=== PATIENT | female | born 1935 | race Caucasian/White ===

== ENCOUNTER 2017-02-25 18:36 | Inpatient (IN) ==
[2017-02-25] MEDS ORDERED: Ipratropium/Albuterol Neb 3 ML IH ONE (18:57)
[2017-02-25] MEDS ORDERED: methylPREDNISolone 125 MG/2 ML VIAL IVP ONE (18:57)
--- NOTE | 2017-02-25 19:14 | Emergency Department Note ---
Disposition Clinical Impression: Acute exacerbation of chronic obstructive airways disease Altered mental status Qualifiers: Altered mental status type: unspecified Qualified Code(s): R41.82 - Altered mental status, unspecified Urinary tract infection Qualifiers: Urinary tract infection type: site unspecified Hematuria presence: without hematuria Qualified Code(s): N39.0 - Urinary tract infection, site not specified Disposition: Admitted As Inpatient Condition: Good Time of Disposition: 23:27 General Adult HPI - General Chief complaint: ED Shortness of Breath/Dyspnea Stated complaint: AMS/SOB Time Seen by Provider: 02/25/17 18:40 Source: patient Limitations: no limitations, age Nursing Notes Reviewed: Yes Vital Signs Reviewed: Yes - History of Present Illness HPI Narrative: Patient [facility] from [facility] with the chief complaint of altered mental status and shortness of breath. Reportedly patient had a lumbar compression fracture diagnosed on January 12 of this year. Nursing reports that she has been slowly declining since then. She was diagnosed with urinary tract infection on February 21 of this year and was placed on Augmentin 875 mg twice a day for 7 days. Reports that over the last week she has been complaining of increasing shortness of breath despite her normal continuous oxygen requirement for COPD. Family reports that she is normally alert and intermittently confused, but that she has been increasing with her confusion. On my evaluation of the patient. She is resting comfortably in bed. She has no complaints at this time. She denies any headache, changes in vision, chest pain, shortness of breath worse than her baseline, abdominal pain, nausea, vomiting, pain or swelling in her legs. She does complain of some chronic low back pain that is no worse than usual. She states she is unsure why she is here for that. Her family thought that she should come be evaluated. Pain Scale: 6 - Related Data Home Medications Medication Instructions Recorded Confirmed ALPRAZolam [Xanax 1 MG Tablet] 1 mg PO 0700,199902/25/17 02/25/17 Albuterol Neb [Proventil Neb] 2.5 mg IH 0000,0600,1200,1800 02/25/17 02/25/17 Amoxicillin/Clavulanate [Augmentin] 875 mg PO Q12H 02/25/17 02/25/17 Arformoterol Tartrate [Brovana] 15 mcg IH 0700,199902/25/17 02/25/17 Ascorbate Calcium [Vitamin C] 500 mg PO DAILY 02/25/17 02/25/17 Atorvastatin [Lipitor] 40 mg PO HS 02/25/17 02/25/17 B2/Vits A,C,E/Lut/Zeaxanth/Min 1 each PO BID 02/25/17 02/25/17 [Icaps Tablet] Budesonide Neb [Pulmicort Neb] 0.25 mg IH 0700,199902/25/17 02/25/17 Buspirone HCl [Buspar] 5 mg PO QAM 02/25/17 02/25/17 Calcium Carbonate/Vitamin D3 1 each PO DAILY 02/25/17 02/25/17 [Calcium 600-Vit D3 200 Tablet] Cholecalciferol (D-3) [Vitamin D] 1,000 unit PO DAILY 02/25/17 02/25/17 Clopidogrel [Plavix] 75 mg PO HS 02/25/17 02/25/17 Docusate [Colace] 100 mg PO DAILY PRN 02/25/17 02/25/17 HYDROcodone/Acet 5/325 mg [[place] 1 tab PO 0500,1100,1700,2300 02/25/17 02/25/17 5-325 mg] Ibuprofen [Motrin] 200 mg PO Q6H PRN 02/25/17 02/25/17 Levothyroxine [Synthroid] 50 mcg PO 0630 02/25/17 02/25/17 Losartan Potassium [Cozaar] 50 mg PO QPM 02/25/17 02/25/17 Magnesium Hydroxide [Milk of 2,400 mg PO DAILY PRN 02/25/17 02/25/17 Magnesia] Meclizine HCl [Verticalm] 25 mg PO Q8H PRN 02/25/17 02/25/17 Megestrol Acetate 800 mg PO DAILY 02/25/17 02/25/17 Multivit-Min/FA/Lycopen/Lutein 1 each PO DAILY 02/25/17 02/25/17 [Centrum Silver Tablet] [place]-3/Dha/Epa/Fish Oil [Fish Oil 1,000 mg PO DAILY 02/25/17 02/25/17 1,000 mg Softgel] Ondansetron HCl [Zofran] 4 mg PO DAILY PRN 02/25/17 02/25/17 Sertraline [Zoloft] 150 mg PO DAILY 02/25/17 02/25/17 metFORMIN [Glucophage] 500 mg PO BIDWM 02/25/17 02/25/17 predniSONE [Prednisone] 20 mg PO DAILY 02/25/17 02/25/17 Allergies Allergy/AdvReac Type Severity Reaction Status Date / Time levofloxacin [From Levaquin] Allergy Rash Verified 07/29/15 19:35 Constitutional: Denies: fever Eyes: Denies: vision change Cardiovascular: Denies: chest pain Respiratory: Denies: dyspnea Past Medical History - Past Medical History Attestation: Yes The following information was validated with the patient. Source: old records reviewed Medical history: Reports: arthritis, COPD, diabetes, hyperlipidemia, hypertension, thyroid disease, other Surgical history: Reports: non-contributory Psychiatric history: Reports: anxiety, depression - Social History Smoking Status: Former smoker Smokeless Tobacco Status: No Alcohol use: Reports: none Drug use: Reports: none Physical Exam - General Limitations: no limitations General appearance: alert, other - Head Head exam: atraumatic, normocephalic, normal inspection - Eye Eye exam: Present: normal appearance, PERRL, EOMI - ENT ENT exam: normal exam, normal oropharynx, mucous membranes dry - Neck Neck exam: Present: normal inspection, full ROM, trachea midline - Chest Chest inspection: Present: normal inspection, symmetric chest wall rise - Respiratory Respiratory exam: Present: wheezes (Diffuse inspiratory and expiratory throughout all lung bose). Absent: normal lung sounds bilaterally, respiratory distress - Cardiovascular Cardiovascular exam: Present: tachycardia, normal heart sounds - Abdominal Exam Abdominal exam: Present: soft, Non-Tender. Absent: tenderness, distention, guarding, rebound, rigidity - Extremities Exam Extremities exam: Present: normal inspection, full ROM, other (Patient's extremities are cool to touch, although has normal refill). Absent: tenderness , pedal edema, calf tenderness - Expanded Lower Extremity Exam Hip/Pelvis exam: Present: normal inspection, full ROM - Back Exam Back exam: Present: normal inspection. Absent: full ROM (Decrease the lumbar spine) - Neurological Exam Neurological exam: Present: alert, oriented X3 (Oriented to name and hospital. She thinks it is 2000), CN II-XII intact. Absent: motor sensory deficit - Expanded Neurological Exam Patient oriented to: Present: person, place Speech: Present: fluid speech Cranial nerves: EOM function (II, III, IV, ): Normal, facial sensation (V): Normal, facial palsy (VII): Normal, spinal accessory function (XI): Normal, tongue deviation (XII): Normal Motor strength - LUE: 5/5 Motor strength - RUE: 5/5 Motor strength - LLE: 5/5 Motor strength - RLE: 5/5 Upper motor neuron exam: harish neglect: Absent bilaterally Sensory exam upper extremity: light touch: Normal Sensory exam lower extremity: light touch: Normal Coma Scale Eye Opening: Spontaneous Coma Scale Motor Response: Obeys Commands Coma Scale Verbal Response: Oriented Coma Scale Total: 15 - Psychiatric Psychiatric exam: Present: normal affect, normal mood - Skin Skin exam: Present: warm, dry, intact, normal color Course - Reevaluation(s) Reevaluation #1: Patient's sister is here now. She does state that the patient has been altered for the last 3 weeks. She does state that the patient normally does know what year it is and is normally alert and oriented 3. She states that this is been slowly declining. She reports that the patient's daughter was supposed to be taking her home from the nursing facility in a few days. States that she has been taking all antibiotics as prescribed. They have not noticed any other changes in behavior. Time: 19:58 Reevaluation #2: Patient's workup is back. Head CT is unremarkable. Patient still is very alert and appropriate. Likely COPD exacerbation. Unclear of the cause of her mental status change. She seems very aware of her surroundings and only does not know the year. Could be related to her urinary tract infection. Could be dementia. We will admit her to the hospitalist service for further evaluation. Neurological exam remains nonfocal. Vital Signs Temperature 98.7 F 02/25/17 18:39 Pulse Rate 102 02/25/17 18:39 Respiratory Rate 22 02/25/17 18:39 Blood Pressure 123/93 02/25/17 18:39 O2 Sat by Pulse Oximetry 93 02/25/17 18:39 Temperature 98.6 F 02/26/17 01:19 Pulse Rate 114 02/26/17 01:19 Respiratory Rate 19 02/26/17 01:19 Blood Pressure 164/80 02/26/17 01:19 O2 Sat by Pulse Oximetry 96 02/26/17 01:19 Oxygen Delivery Oxygen Delivery Room Air Medical Decision Making - Medical Records Medical records reviewed: Yes I reviewed the patient's medical records. - Lab Data Lab results reviewed: Yes I reviewed the patient's lab results. Result diagrams: 02/25/17 19:20 02/25/17 19:20 Lab Results 02/25/17 02/25/17 02/25/17 Range/Units 19:20 19:20 19:20 WBC 10.4 (4.3-11.1) K/mcL RBC 4.00 (3.82-4.97) M/mcL Hgb 12.6 (11.5-15.4) g/dL Hct 40.0 (35.3-44.9) % MCV 100.0 (83.0-100.0) fL MCH 31.5 (28.0-33.3) pg MCHC 31.5 L (31.6-35.5) g/dL RDW 12.8 (11.5-14.5) % Plt Count 254 (140-400) K/mcL MPV 9.1 L (9.4-12.4) fL Immature Gran % 0.5 (0-4) % Seg Neutrophils % 90.3 % Lymphocytes % 6.7 % Monocytes % 2.4 % Eosinophils % 0.0 % Basophils % 0.1 % Neutrophils # 9.4 H (1.6-8.9) K/mcL Lymphocytes # 0.7 (0.6-4.6) K/mcL Monocytes # 0.3 (0.0-1.3) K/mcL Eosinophils # 0.0 (0.0-0.6) K/mcL Basophils # 0.0 (0.0-0.2) K/mcL PT 12.2 H (9.4-12.1) Seconds INR 1.1 APTT 28.1 (26.0-36.0) Seconds Sodium 139 (136-145) mEq/L Potassium 4.3 (3.5-4.5) mEq/L Chloride 99 (98-109) mEq/L Carbon Dioxide 27 (19-29) mEq/L BUN 18 (7-20) mg/dL Creatinine 0.84 (0.57-1.11) mg/dL Est GFR ( Amer) > 60 (> 60) Est GFR (Non-Af Amer) > 60 (> 60) BUN/Creatinine Ratio 21 (6-26) Glucose 192 H (70-99) mg/dL Calculated Osmolality 295 (280-300) Calcium 10.8 (8.6-10.8) mg/dL Total Bilirubin 0.2 (0.2-1.2) mg/dL Direct Bilirubin 0.1 (0.0-0.5) mg/dL Indirect Bilirubin 0.1 (0.0-1.2) mg/dL AST 49 H (5-34) Units/L ALT 37 (0-55) Units/L Alkaline Phosphatase 79 (38-126) Units/L Creatine Kinase 29 (29-168) Units/L Troponin I (0-0.03) ng/mL Serum Total Protein 7.9 (6.0-8.3) g/dL Albumin 3.3 L (3.5-5.0) g/dL Globulin 4.6 H (2.4-3.5) g/dL Albumin/Globulin Ratio 0.7 L (1.1-2.2) TSH 0.818 (0.350-4.840) mcIU/mL Urine Color (Yellow) Urine Clarity (Clear) Urine pH (5.0-8.0) pH Units Ur Specific [place] (1.010-1.025) Urine Protein (Neg-Trace) mg/dL Urine Glucose (UA) (Normal) mg/dL Urine Ketones (Negative) mg/dL Urine Blood (Negative) Urine Nitrite (Negative) Urine Bilirubin (Negative) Urine Urobilinogen (Normal) mg/dL Ur Leukocyte Esterase (Negative) Urine Microscopic RBC (0-3) per hpf Urine Microscopic WBC (0-3) per hpf Ur Squamous Epith Cells (None-Few) per lpf Ur Transition Epith Cell (None-Few) per hpf Urine Bacteria (None-Few) per hpf Hyaline Casts (None-Few) per lpf Ur Culture Indicated? (NO) 02/25/17 02/25/17 Range/Units 19:20 20:36 WBC (4.3-11.1) K/mcL RBC (3.82-4.97) M/mcL Hgb (11.5-15.4) g/dL Hct (35.3-44.9) % MCV (83.0-100.0) fL MCH (28.0-33.3) pg MCHC (31.6-35.5) g/dL RDW (11.5-14.5) % Plt Count (140-400) K/mcL MPV (9.4-12.4) fL Immature Gran % (0-4) % Seg Neutrophils % % Lymphocytes % % Monocytes % % Eosinophils % % Basophils % % Neutrophils # (1.6-8.9) K/mcL Lymphocytes # (0.6-4.6) K/mcL Monocytes # (0.0-1.3) K/mcL Eosinophils # (0.0-0.6) K/mcL Basophils # (0.0-0.2) K/mcL PT (9.4-12.1) Seconds INR APTT (26.0-36.0) Seconds Sodium (136-145) mEq/L Potassium (3.5-4.5) mEq/L Chloride (98-109) mEq/L Carbon Dioxide (19-29) mEq/L BUN (7-20) mg/dL Creatinine (0.57-1.11) mg/dL Est GFR ( Amer) (> 60) Est GFR (Non-Af Amer) (> 60) BUN/Creatinine Ratio (6-26) Glucose (70-99) mg/dL Calculated Osmolality (280-300) Calcium (8.6-10.8) mg/dL Total Bilirubin (0.2-1.2) mg/dL Direct Bilirubin (0.0-0.5) mg/dL Indirect Bilirubin (0.0-1.2) mg/dL AST (5-34) Units/L ALT (0-55) Units/L Alkaline Phosphatase (38-126) Units/L Creatine Kinase (29-168) Units/L Troponin I 0.02 (0-0.03) ng/mL Serum Total Protein (6.0-8.3) g/dL Albumin (3.5-5.0) g/dL Globulin (2.4-3.5) g/dL Albumin/Globulin Ratio (1.1-2.2) TSH (0.350-4.840) mcIU/mL Urine Color Yellow (Yellow) Urine Clarity Clear (Clear) Urine pH 6.0 (5.0-8.0) pH Units Ur Specific [place] 1.020 (1.010-1.025) Urine Protein 30 H (Neg-Trace) mg/dL Urine Glucose (UA) Normal (Normal) mg/dL Urine Ketones Negative (Negative) mg/dL Urine Blood Trace H (Negative) Urine Nitrite Negative (Negative) Urine Bilirubin Negative (Negative) Urine Urobilinogen Normal (Normal) mg/dL Ur Leukocyte Esterase Small H (Negative) Urine Microscopic RBC 5-15 H (0-3) per hpf Urine Microscopic WBC 15-30 H (0-3) per hpf Ur Squamous Epith Cells Many H (None-Few) per lpf Ur Transition Epith Cell Few (None-Few) per hpf Urine Bacteria None Seen (None-Few) per hpf Hyaline Casts None Seen (None-Few) per lpf Ur Culture Indicated? YES A (NO) - Radiology Data Radiology results reviewed: Yes I reviewed the patient's radiology results. - EKG Data EKG #1 EKG attestation: Yes I reviewed and interpreted this EKG. EKG results narrative: Sinus tach, rate 103, VT interval 134, QRS 86, QTC 383, normal axis, no acute ischemic changes, no previous available at this time S.B.A.R. - S.B.A.R. Situation: Demographics, MOA Background: Presenting Complaint, Relevant PMH, Meds, & Allergies Assessment: Vital Signs, Course and respsone to treatment, Exam Concerns, Patient/Family Expectation, Pertinant Lab Results, Outstanding Labs Recommendation: Recommendation based on pending studies, treatments, or consults S.B.A.R. Report Given to: Dr. Arora S.B.A.RRajeev Repor Time: 23:26 Attestation Statement - Attestation Attestation: I, Ameya Peterson, examined this patient and my medical decision-making was reviewed with the ALLERGIST/IMMUNOLOGIST/PA/Advanced Practice Nurse/Resident Physician. I agree with the documented findings, disposition and treatment plan as described except to the extent set forth below. 81-year-old female brought in by EMS from rehabilitation facility for concerns of altered mental status and increasing shortness of breath. Patient has a history of COPD and is on 3 L of nasal cannula oxygen at home at all times. Family is present in the room state the patient is significantly more confused than her baseline. Today she is able to determine the place but not the year or her current situation. On physical exam the patient has significant wheezing in the bilateral posterior lung bose. She was given Solu-Medrol and DuoNeb times in the emergency department with improvement of symptoms. Patient has a possible mild urinary tract infection however she has been treated with Augmentin at the rehabilitation facility. Patient given a dose of ceftriaxone in the emergency department. CT of the head was negative for acute fracture or intracranial hemorrhage. She will be admitted to the hospital for further evaluation of her confusion as well as for treatment of her likely COPD exacerbation.
[2017-02-25 19:35] LABS: Basophils % 0.1 %; Hemoglobin 12.6 g/dL (11.5-15.4); Immature Granulocytes % 0.5 % (0-4); Lymphocytes # 0.7 K/mcL (0.6-4.6); Lymphocytes % 6.7 %; Mean Corpuscular HGB Conc 31.5 g/dL (31.6-35.5); Mean Corpuscular Hemoglobin 31.5 pg (28.0-33.3); Mean Platelet Volume 9.1 fL (9.4-12.4); Monocytes # 0.3 K/mcL (0.0-1.3); Monocytes % 2.4 %; Neutrophils # 9.4 K/mcL (1.6-8.9); Platelet Count 254 K/mcL (140-400); Red Cell Distribution Width 12.8 % (11.5-14.5); Segmented Neutrophils % 90.3 %
[2017-02-25 19:38] LABS: INR 1.1; Prothrombin Time 12.2 Seconds (9.4-12.1)
[2017-02-25 19:41] LABS: Activated Partial Thrombo Time 28.1 Seconds (26.0-36.0)
[2017-02-25 19:48] LABS: Alanine Aminotransferase 37 Units/L (0-55); Albumin 3.3 g/dL (3.5-5.0); Albumin/Globulin Ratio 0.7 (1.1-2.2); Alkaline Phosphatase 79 Units/L (38-126); Aspartate Amino Transferase 49 Units/L (5-34); BUN/Creatinine Ratio 21 (6-26); Bilirubin,Direct 0.1 mg/dL (0.0-0.5); Bilirubin,Indirect 0.1 mg/dL (0.0-1.2); Bilirubin,Total 0.2 mg/dL (0.2-1.2); Blood Urea Nitrogen 18 mg/dL (7-20); Calcium 10.8 mg/dL (8.6-10.8); Carbon Dioxide 27 mEq/L (19-29); Chloride 99 mEq/L (98-109); Creatine Kinase 29 Units/L (29-168); Globulin 4.6 g/dL (2.4-3.5); Glucose 192 mg/dL (70-99); Osmolality,Calculated 295 (280-300); Potassium 4.3 mEq/L (3.5-4.5); Sodium 139 mEq/L (136-145); Total Protein 7.9 g/dL (6.0-8.3); eGFR For African Americans > 60 (> 60); eGFR For Non-African Americans > 60 (> 60)
[2017-02-25 20:08] LABS: Thyroid Stimulating Hormone 0.818 mcIU/mL (0.350-4.840)
[2017-02-25 20:55] LABS: Bilirubin,Urine Negative (Negative); Blood,Urine Trace (Negative); Clarity,Urine Clear (Clear); Color,Urine Yellow (Yellow); Glucose,Urine (UA) Normal (Normal); Ketones,Urine Negative (Negative); Leukocyte Esterase,Urine Small (Negative); Nitrite,Urine Negative (Negative); Protein,Urine 30 mg/dL (Neg-Trace); Urobilinogen,Urine Normal (Normal)
[2017-02-25 20:59] LABS: Bacteria,Urine None Seen per hpf (None-Few); Hyaline Casts,Urine None Seen per lpf (None-Few); Squamous Epithelial Cell,Urine Many per lpf (None-Few); WBC,Urine 15-30 per hpf (0-3)
[2017-02-25 21:14] LABS: Transitional Epi Cells,Urine Few per hpf (None-Few)
[2017-02-26] MEDS ORDERED: NON-FORMULARY MEDICATION 1 EACH EACH (Magnesium Hydroxide [Milk Of Magnesia] 2,400 MG) PO PRN (01:24)
[2017-02-26] MEDS ORDERED: NON-FORMULARY MEDICATION 1 EACH EACH (Meclizine Hcl [Verticalm] 25 MG) PO PRN (01:24)
--- NOTE | 2017-02-26 01:27 | Internal Med History&Physical ---
Date of Encounter: 02/26/17 Time of Encounter: 01:26 Assessment and Plan (1) Acute exacerbation of chronic obstructive airways disease Current visit: Yes Status: Acute she has minimal wheezing is satting okay on 2 L of oxygen. Unclear if this is a COPD exacerbation, she does not appear to be in any acute respiratory distress at this time. However she did get a stat dose of 125 of methyl pred at ED and was brought in because of worsening shortness of breath. Will continue PO prednisone for now, and breathing treatments, chest x-ray did not show any pneumonia. Incentive spirometry by the bedside. (2) Altered mental status Current visit: Yes Status: Acute unclear if she has baseline dementia but she was able to answer most of the questions for me. no family at the bedside, she does seem to have midl UTI, which will be treated. head CT is negative. observe for now, she is a fall risk. Qualifiers: Altered mental status type: unspecified Qualified Code(s): R41.82 - Altered mental status, unspecified (3) Urinary tract infection Current visit: Yes Status: Acute will follow urine cx. will treat with Iv rocephin for now. de escalate once cx are back. Qualifiers: Urinary tract infection type: site unspecified Hematuria presence: without hematuria Qualified Code(s): N39.0 - Urinary tract infection, site not specified (4) H/O fracture of hip Current visit: Yes Status: Acute had hip fracture recently and has been going downhill since then as per the notes. she was brought from the [place] [facility] will continue bedside PT/OT ensure DVT prophylaixs Internal Medicine - H&P: HPI Chief complaint: sob Admitted From: Long-term Nursing Facility Plans for Post Hospital Care: Transfer Care Home Facility History of present illness: Ms. Watts is a 81 year old female presented with altered mental status and shortness of breath. Reportedly patient had a lumbar compression fracture diagnosed on January 12 of this year. Nursing reports that she has been slowly declining since then. She was diagnosed with urinary tract infection on February 21 of this year and was placed on Augmentin 875 mg twice a day for 7 days. Reports that over the last week she has been complaining of increasing shortness of breath despite her normal continuous oxygen requirement for COPD. when asked, She says that she has been doing ok but has gone through a lot with the recent hip fracture. she says she takes 3 l of o2 at the [facility]. she denies any chest pain, fever or cough but says she has been wheezing. . She states she is unsure why she is here . As per the ED note, Her family thought that she should come be evaluated and thinks that she is more confused than usual. Past Med Surg Social Fam HX - Past Medical History Medical history: arthritis, COPD, diabetes, hyperlipidemia, hypertension, thyroid disease, other Psychiatric history: anxiety, depression - Past Surgical History Surgical History: non-contributory - Social History Smoking Status: Former smoker Smokeless Tobacco Status: No Alcohol use: none Drug use: none Internal Medicine - H&P: Meds ALPRAZolam [Xanax 1 MG Tablet] 1 mg PO 0700,199902/25/17 [History] Albuterol Neb [Proventil Neb] 2.5 mg IH 0000,0600,1200,1800 02/25/17 [History] Amoxicillin/Clavulanate [Augmentin] 875 mg PO Q12H 02/25/17 [History] Arformoterol Tartrate [Brovana] 15 mcg IH 0700,199902/25/17 [History] Ascorbate Calcium [Vitamin C] 500 mg PO DAILY 02/25/17 [History] Atorvastatin [Lipitor] 40 mg PO HS 02/25/17 [History] B2/Vits A,C,E/Lut/Zeaxanth/Min [Icaps Tablet] 1 each PO BID 02/25/17 [History] Budesonide Neb [Pulmicort Neb] 0.25 mg IH 07,199902/25/17 [History] Buspirone HCl [Buspar] 5 mg PO QAM 02/25/17 [History] Calcium Carbonate/Vitamin D3 [Calcium 600-Vit D3 200 Tablet] 1 each PO DAILY 01/07 [History] Cholecalciferol (D-3) [Vitamin D] 1,000 unit PO DAILY 02/25/17 [History] Clopidogrel [Plavix] 75 mg PO HS 02/25/17 [History] Docusate [Colace] 100 mg PO DAILY PRN 02/25/17 [History] HYDROcodone/Acet 5/325 mg [[place] 5-325 mg] 1 tab PO 0500,1100,1700,2300 [History] Ibuprofen [Motrin] 200 mg PO Q6H PRN 02/25/17 [History] Levothyroxine [Synthroid] 50 mcg PO 0630 02/25/17 [History] Losartan Potassium [Cozaar] 50 mg PO QPM 02/25/17 [History] Magnesium Hydroxide [Milk of Magnesia] 2,400 mg PO DAILY PRN 02/25/17 [History] Meclizine HCl [Verticalm] 25 mg PO Q8H PRN 02/25/17 [History] Megestrol Acetate 800 mg PO DAILY 02/25/17 [History] Multivit-Min/FA/Lycopen/Lutein [Centrum Silver Tablet] 1 each PO DAILY 02/25/17 [History] [place]-3/Dha/Epa/Fish Oil [Fish Oil 1,000 mg Softgel] 1,000 mg PO DAILY 02/25/17 [History] Ondansetron HCl [Zofran] 4 mg PO DAILY PRN 02/25/17 [History] Sertraline [Zoloft] 150 mg PO DAILY 02/25/17 [History] metFORMIN [Glucophage] 500 mg PO BIDWM 02/25/17 [History] predniSONE [Prednisone] 20 mg PO DAILY 02/25/17 [History] Allergies levofloxacin [From Levaquin] Allergy (Verified 07/29/15 19:35) Rash All Systems PM: A 10-system review of systems was performed and is negative for pertinent findings except as documented above in the HPI. - Constitutional Constitutional: no chills, no fever(s), no night sweats - EENT Eyes: no change in vision, no discharge, no pain, no photophobia Ears: no ear discharge, no ear pain, no tinnitus Nose, mouth and throat: no dysphagia, no nasal discharge, no neck pain, no sore throat - Cardiovascular Cardiovascular ROS IM: no chest pain, no diaphoresis, no dyspnea, no lightheadedness, no palpitations, no syncope - Respiratory Respiratory: dyspnea on exertion, wheezing, no cough, no dyspnea, no excessive phlegm production - Gastrointestinal Gastrointestinal: no abdominal pain, no diarrhea, no hematemesis, no hematochezia, no melena, no nausea, no vomiting - Constitutional Vitals: Temp Pulse Resp BP Pulse Ox 98.6 F 114 19 164/80 96 02/26/17 01:19 02/26/17 01:19 02/26/17 01:19 02/26/17 01:19 02/26/17 01:19 General appearance: Present: A&O X 3, no acute distress Exam: neck- supple chest- occ wheezing, creptbs b.l bases. cvs-s1 and s2, no mr/g/ abd-soft, non tender, bs are present ext- no edema neuro- no focal defecits, slow to respond but alert ,awake and orientedx2. Internal Med - H&P Results - Labs CBC & Chem 7: 02/25/17 19:20 02/25/17 19:20
[2017-02-26] MEDS ORDERED: Naloxone 0.4 MG/ML INJ IVP PRN (01:38)
[2017-02-26] MEDS ORDERED: Dextrose Gel 15 GM PO PRN ×2 (01:42)
[2017-02-26] MEDS ORDERED: D5% in Water 1,000 ML IVC PRN (01:42)
[2017-02-26] MEDS ORDERED: *HR* Dextrose 50 % in Water (Syg) 50 ML SYRINGE IVP PRN (01:42)
[2017-02-26 02:26] LABS: Basophils % 0.1 %; Hematocrit 34.8 % (35.3-44.9); Hemoglobin 11.3 g/dL (11.5-15.4); Immature Granulocytes % 0.7 % (0-4); Immature Platelets 1.9 % (1.1-6.1); Lymphocytes # 0.7 K/mcL (0.6-4.6); Mean Corpuscular HGB Conc 32.5 g/dL (31.6-35.5); Mean Corpuscular Volume 98.6 fL (83.0-100.0); Monocytes # 0.1 K/mcL (0.0-1.3); Monocytes % 0.8 %; Neutrophils # 9.3 K/mcL (1.6-8.9); Platelet Count 251 K/mcL (140-400); Red Blood Count 3.53 M/mcL (3.82-4.97); Red Cell Distribution Width 12.9 % (11.5-14.5); Segmented Neutrophils % 91.4 %
[2017-02-26] MEDS: Ipratropium/Albuterol Neb 3 ML IH SCH ×6 (03:36→23:14)
[2017-02-26 05:40] LABS: BUN/Creatinine Ratio 24 (6-26); Blood Urea Nitrogen 17 mg/dL (7-20); Calcium 10.1 mg/dL (8.6-10.8); Carbon Dioxide 26 mEq/L (19-29); Chloride 103 mEq/L (98-109); Glucose 134 mg/dL (70-99); Osmolality,Calculated 294 (280-300); Phosphorous 1.9 mg/dL (2.3-4.7); Sodium 140 mEq/L (136-145); eGFR For African Americans > 60 (> 60); eGFR For Non-African Americans > 60 (> 60)
[2017-02-26 05:41] LABS: Magnesium 1.7 mg/dL (1.6-2.6); Potassium 4.6 mEq/L (3.5-4.5)
[2017-02-26] MEDS: *HR* HYDROcodone/Acet 5/325 mg TABLET PO SCH ×4 (05:51→23:54)
[2017-02-26] MEDS ORDERED: BROVANA IH SCH (07:00)
[2017-02-26] MEDS ORDERED: Budesonide Neb 0.25 MG/2 ML IH SCH ×2 (07:00)
[2017-02-26] MEDS ORDERED: [UNRECOGNIZED DRUG - OTHER] PO SCH (09:00)
[2017-02-26] MEDS ORDERED: predniSONE 20 MG TABLET PO SCH ×2 (09:00)
[2017-02-26] MEDS ORDERED: MEGESTROL ACETATE 800 MG PO SCH (09:00)
[2017-02-26] MEDS ORDERED: NON-FORMULARY MEDICATION 1 EACH EACH (Ascorbate Calcium [Vitamin C] 500 MG) PO SCH (09:00)
[2017-02-26] MEDS ORDERED: (Fish Oil 1,000 Mg Softgel) PO SCH (09:00)
[2017-02-26] MEDS: Insulin LISPRO 300 UNITS/3 ML VIAL SQ SCH ×4 (09:26→21:30)
[2017-02-26] MEDS: Multivit/Ca/Min/Fe/FA 1 TAB TABLET PO SCH (09:32)
[2017-02-26] MEDS: ALPRAZolam 1 MG TABLET PO SCH ×2 (09:32→19:49)
[2017-02-26] MEDS: Megestrol Acetate 400 MG/10 ML UDC PO SCH (09:32)
[2017-02-26] MEDS: Cholecalciferol (D-3) 1,000 UNIT TABLET PO SCH (09:32)
[2017-02-26] MEDS: Ascorbic Acid 500 MG TABLET PO SCH (09:33)
--- NOTE | 2017-02-26 12:15 | Electrocardiograph Report ---
[address] [address] Test Date: 2017-02-25 Pat Name: Loly Watts Department: 102 Room: 3A Gender: F Insole Rasper: Mellisa : 1935 Requested By: Papa Vasquez Order Number: [id number] Reading MD: Rafa Cummings MD Measurements Intervals [place] Rate: 103 P: 67 NV: 134 QRS: 15 QRSD: 86 T: 40 QT: 324 QTc: 383 Interpretive Statements SINUS TACHYCARDIA Electronically Signed On 02-26-2017 12:13:34 EDT by Rafa Cummings MD
--- NOTE | 2017-02-26 15:40 | Internal Med Progress Note ---
Date of Encounter: 02/26/17 Time of Encounter: 15:38 - Assessment and plan (1) Acute exacerbation of chronic obstructive airways disease Current Visit: Yes Status: Acute Assessment and plan: Acute metabolic encephalopathy possibly secondary to acute COPD exacerbation due to acute bronchitis viral versus bacterial Stop prednisone and restart Solu-Medrol IV, continue duo nebs and oxygen therapy Continue Rocephin day 2 started for UTI (2) Altered mental status Current Visit: Yes Status: Acute Assessment and plan: Consider ABG declining Qualifiers: Altered mental status type: unspecified Qualified Code(s): R41.82 - Altered mental status, unspecified (3) Urinary tract infection Current Visit: Yes Status: Acute Assessment and plan: Improving on Rocephin day 2 Last culture grew enterococcus sensitive to ampicillin Await culture report Qualifiers: Urinary tract infection type: site unspecified Hematuria presence: without hematuria Qualified Code(s): N39.0 - Urinary tract infection, site not specified (4) H/O fracture of hip Current Visit: Yes Status: Acute - Subjective Interval history: Confused at times. Patient is still feeling short of breath, bringing up some whitish phlegm, denies any chest pain, no abdominal pain, no dysuria. No fevers - Constitutional Vitals: Temp Pulse Resp BP Pulse Ox 98.3 F 99 18 113/71 97 02/26/17 10:34 02/26/17 10:34 02/26/17 11:37 02/26/17 10:34 02/26/17 11:37 General appearance: Present: A&O X 3, no acute distress - Head Head exam: Present: atraumatic, normocephalic - Eye Eye exam: Present: PERRL, conjuntiva pink, sclera anicteric Pupils: Present: PERRL - Neck Neck exam general surgery: Present: supple, trachea midline. Absent: lymphadenopathy - Respiratory Respiratory exam: Present: decreased breath sounds, CTAB, wheezes (Diffuse wheezing). Absent: accessory muscle use, rales, rhonchi - Cardiovascular Cardiovascular exam: Present: RRR, +S1, +S2. Absent: diastolic murmur, gallop, rubs, systolic murmur - GI/Abdominal GI/Abdominal exam: Present: normal bowel sounds, soft, no peritoneal signs. Absent: distended, tenderness - Extremities Exam Extremities exam: Present: warm, radial pulses palpable and symetrical. Absent : calf tenderness, cyanotic, pedal edema - Neurological Exam Neurological exam: Present: CN II-XII intact, oriented X3, no focal deficits. Absent: pronater drift, facial droop, speech deficit - Skin Skin exam: Present: dry, intact Internal Medicine: Result - Labs CBC & Chem 7: 02/26/17 02:05 02/26/17 05:13 - ABG Interpretation ABG results: PT/INR, D-dimer PT 12.2 Seconds (9.4-12.1) H 02/25/17 19:20 Consult Discharge Plan - Plan Referrals: NO,PCP [Primary Care Provider] -
[2017-02-26] MEDS: MethylPREDNISolone 40 MG/ML VIAL IVP SCH ×2 (16:13→23:54)
[2017-02-26] MEDS: *HR* Heparin 5,000 UNIT/ML VIAL SQ SCH (16:51)
[2017-02-26] MEDS ORDERED: NON-FORMULARY MEDICATION 1 EACH EACH (Losartan Potassium [Cozaar] 50 MG) PO SCH (18:00)
[2017-02-27] MEDS: Ipratropium/Albuterol Neb 3 ML IH SCH ×6 (04:13→23:03)
[2017-02-27] MEDS: *HR* Heparin 5,000 UNIT/ML VIAL SQ SCH ×2 (06:05→18:32)
[2017-02-27] MEDS: ALPRAZolam 1 MG TABLET PO SCH ×2 (06:05→19:50)
[2017-02-27] MEDS: *HR* HYDROcodone/Acet 5/325 mg TABLET PO SCH ×4 (06:05→22:16)
[2017-02-27] MEDS: Cholecalciferol (D-3) 1,000 UNIT TABLET PO SCH (07:53)
[2017-02-27] MEDS: Multivit/Ca/Min/Fe/FA 1 TAB TABLET PO SCH (07:54)
[2017-02-27] MEDS: Ascorbic Acid 500 MG TABLET PO SCH (07:54)
[2017-02-27] MEDS: Megestrol Acetate 400 MG/10 ML UDC PO SCH ×2 (07:56→08:25)
[2017-02-27] MEDS: MethylPREDNISolone 40 MG/ML VIAL IVP SCH ×2 (07:57→15:10)
[2017-02-27] MEDS: Insulin LISPRO 300 UNITS/3 ML VIAL SQ SCH ×4 (08:08→22:15)
--- NOTE | 2017-02-27 08:46 | Internal Med Progress Note ---
Date of Encounter: 02/27/17 Time of Encounter: 08:44 - Assessment and plan (1) Acute exacerbation of chronic obstructive airways disease Current Visit: Yes Status: Acute Assessment and plan: Acute metabolic encephalopathy possibly secondary to acute COPD exacerbation due to acute bronchitis viral versus bacterial Stopped prednisone and restarted Solu-Medrol IV, continue duo nebs and oxygen therapy Continue Rocephin day 3 (2) Altered mental status Current Visit: Yes Status: Acute Assessment and plan: Consider ABG declining Qualifiers: Altered mental status type: unspecified Qualified Code(s): R41.82 - Altered mental status, unspecified (3) Urinary tract infection Current Visit: Yes Status: Acute Assessment and plan: Improving on Rocephin day 3 Last culture grew enterococcus sensitive to ampicillin During Culture showed no growth We will continue Rocephin due to possible bronchitis Qualifiers: Urinary tract infection type: site unspecified Hematuria presence: without hematuria Qualified Code(s): N39.0 - Urinary tract infection, site not specified (4) H/O fracture of hip Current Visit: Yes Status: Acute - Subjective Interval history: Confused at times. Feeling short of breath, bringing up some whitish phlegm, denies any chest pain , no abdominal pain, no dysuria. No fevers - Constitutional Vitals: Temp Pulse Resp BP Pulse Ox 98.6 F 81 18 135/61 98 02/27/17 07:22 02/27/17 07:22 02/27/17 08:19 02/27/17 07:22 02/27/17 08:19 General appearance: Present: A&O X 3, no acute distress - Head Head exam: Present: atraumatic, normocephalic - Eye Eye exam: Present: PERRL, conjuntiva pink, sclera anicteric Pupils: Present: PERRL - Neck Neck exam general surgery: Present: supple, trachea midline. Absent: lymphadenopathy - Respiratory Respiratory exam: Present: CTAB, wheezes (Diffuse wheezing). Absent: accessory muscle use, rales, rhonchi - Cardiovascular Cardiovascular exam: Present: RRR, +S1, +S2. Absent: diastolic murmur, gallop, rubs, systolic murmur - GI/Abdominal GI/Abdominal exam: Present: normal bowel sounds, soft, no peritoneal signs. Absent: distended, tenderness - Extremities Exam Extremities exam: Present: warm, radial pulses palpable and symetrical. Absent : calf tenderness, cyanotic, pedal edema - Neurological Exam Neurological exam: Present: CN II-XII intact, oriented X3, no focal deficits. Absent: pronater drift, facial droop, speech deficit - Skin Skin exam: Present: dry, intact Internal Medicine: Result - Labs CBC & Chem 7: 02/26/17 02:05 02/26/17 05:13 - ABG Interpretation ABG results: PT/INR, D-dimer PT 12.2 Seconds (9.4-12.1) H 02/25/17 19:20 Consult Discharge Plan - Plan Referrals: NO,PCP [Primary Care Provider] -
[2017-02-28] MEDS: MethylPREDNISolone 40 MG/ML VIAL IVP SCH ×2 (00:23→09:20)
[2017-02-28] MEDS: Ipratropium/Albuterol Neb 3 ML IH SCH ×3 (04:45→10:23)
[2017-02-28 05:43] LABS: Hematocrit 34.3 % (35.3-44.9); Hemoglobin 10.8 g/dL (11.5-15.4); Mean Corpuscular HGB Conc 31.5 g/dL (31.6-35.5); Mean Corpuscular Hemoglobin 31.2 pg (28.0-33.3); Mean Corpuscular Volume 99.1 fL (83.0-100.0); Mean Platelet Volume 9.1 fL (9.4-12.4); Platelet Count 254 K/mcL (140-400); Red Blood Count 3.46 M/mcL (3.82-4.97); Red Cell Distribution Width 13.3 % (11.5-14.5)
[2017-02-28 05:58] LABS: BUN/Creatinine Ratio 33 (6-26); Blood Urea Nitrogen 23 mg/dL (7-20); Calcium 9.7 mg/dL (8.6-10.8); Carbon Dioxide 29 mEq/L (19-29); Chloride 102 mEq/L (98-109); Glucose 172 mg/dL (70-99); Osmolality,Calculated 294 (280-300); Potassium 4.4 mEq/L (3.5-4.5); Sodium 138 mEq/L (136-145); eGFR For African Americans > 60 (> 60); eGFR For Non-African Americans > 60 (> 60)
[2017-02-28] MEDS: *HR* HYDROcodone/Acet 5/325 mg TABLET PO SCH ×2 (06:14→10:56)
[2017-02-28] MEDS: *HR* Heparin 5,000 UNIT/ML VIAL SQ SCH (06:14)
[2017-02-28] MEDS: ALPRAZolam 1 MG TABLET PO SCH (06:14)
[2017-02-28 06:47] VITALS: BP 134/72
--- NOTE | 2017-02-28 08:23 | Discharge Summary ---
Date of Encounter: 02/28/17 Time of Encounter: 08:20 - Discharge Diagnosis (1) Acute exacerbation of chronic obstructive airways disease Priority: Primary Status: Acute Comments: Acute metabolic encephalopathy possibly secondary to acute COPD exacerbation due to acute bronchitis viral versus bacterial (2) Altered mental status Priority: Secondary Status: Acute Qualifiers: Altered mental status type: unspecified Qualified Code(s): R41.82 - Altered mental status, unspecified (3) Urinary tract infection Priority: Secondary Status: Acute Comments: Improving on Rocephin day 4 Last culture grew enterococcus sensitive to ampicillin Current urine Culture showed no growth Qualifiers: Urinary tract infection type: site unspecified Hematuria presence: without hematuria Qualified Code(s): N39.0 - Urinary tract infection, site not specified (4) H/O fracture of hip Priority: Secondary Status: Acute - Discharge Medications Prescriptions: ALPRAZolam [Xanax 1 MG Tablet] 1 mg PO 699,1999 #20 tablet Amoxicillin/Clavulanate [Augmentin] 875 mg PO Q12H #8 tablet HYDROcodone/Acet 5/325 mg [[place] 5-325 mg] 1 tab PO 0500,1100,1700,2300 PRN #20 tablet PRN Reason: pain predniSONE [PredniSONE] 10 mg PO DAILY 18 Days Home Medications: Albuterol Neb [Proventil Neb] 2.5 mg IH 0000,0600,1200,1800 02/25/17 [History] Arformoterol Tartrate [Brovana] 15 mcg IH 699,199902/25/17 [History] Ascorbate Calcium [Vitamin C] 500 mg PO DAILY 02/25/17 [History] Atorvastatin [Lipitor] 40 mg PO HS 02/25/17 [History] B2/Vits A,C,E/Lut/Zeaxanth/Min [Icaps Tablet] 1 each PO BID 02/25/17 [History] Budesonide Neb [Pulmicort Neb] 0.25 mg IH 699,199902/25/17 [History] Buspirone HCl [Buspar] 5 mg PO QAM 02/25/17 [History] Calcium Carbonate/Vitamin D3 [Calcium 600-Vit D3 200 Tablet] 1 each PO DAILY 01/07 [History] Cholecalciferol (D-3) [Vitamin D] 1,000 unit PO DAILY 02/25/17 [History] Clopidogrel [Plavix] 75 mg PO HS 02/25/17 [History] Docusate [Colace] 100 mg PO DAILY PRN 02/25/17 [History] Ibuprofen [Motrin] 200 mg PO Q6H PRN 02/25/17 [History] Levothyroxine [Synthroid] 50 mcg PO 0630 02/25/17 [History] Losartan Potassium [Cozaar] 50 mg PO QPM 02/25/17 [History] Magnesium Hydroxide [Milk of Magnesia] 2,400 mg PO DAILY PRN 02/25/17 [History] Meclizine HCl [Verticalm] 25 mg PO Q8H PRN 02/25/17 [History] Megestrol Acetate 800 mg PO DAILY 02/25/17 [History] Multivit-Min/FA/Lycopen/Lutein [Centrum Silver Tablet] 1 each PO DAILY 02/25/17 [History] [place]-3/Dha/Epa/Fish Oil [Fish Oil 1,000 mg Softgel] 1,000 mg PO DAILY 02/25/17 [History] Ondansetron HCl [Zofran] 4 mg PO DAILY PRN 02/25/17 [History] Sertraline [Zoloft] 150 mg PO DAILY 02/25/17 [History] metFORMIN [Glucophage] 500 mg PO BIDWM 02/25/17 [History] ALPRAZolam [Xanax 1 MG Tablet] 1 mg PO 0700,1999 #20 tablet 02/28/17 [Rx] Amoxicillin/Clavulanate [Augmentin] 875 mg PO Q12H #8 tablet 02/28/17 [Rx] HYDROcodone/Acet 5/325 mg [[place] 5-325 mg] 1 tab PO 0500,1100,1700,2300 PRN #20 tablet 02/28/17 [Rx] predniSONE [PredniSONE] 10 mg PO DAILY 18 Days 02/28/17 [Rx] Allergies/Adverse Reactions: Allergies levofloxacin [From Levaquin] Allergy (Verified 07/29/15 19:35) Rash Date of admission: 02/26/17 13:11 Primary care physician: PCP NO - Patient Status Disposition: Transfer SNF Condition: Good Overall status at discharge: patient is progressing back to baseline - Discharge Instructions Follow Up With: NO,PCP [Primary Care Provider] - Additional Instructions: Follow-up with primary care physician within the next 7 days. Complete 4 more days of Augmentin, taper prednisone. Continue oxygen therapy - Diet and Activity Activity: wear oxygen at all times Diet: diabetic diet, low fat, low cholesterol Hospital course: Ms. Watts is a 81 year old female with a past medical history of COPD oxygen dependent, diabetes type 2 not insulin-dependent, hyperlipidemia, hypertension, hypothyroidism, anxiety, presented with altered mental status and shortness of breath. Reportedly patient had a lumbar compression fracture diagnosed on January 12 of this year. Nursing facility reported that she has been slowly declining since then. She was diagnosed with urinary tract infection on February 21 of this year and was placed on Augmentin 875 mg twice a day for 7 days for enterococcus. Reports that over the last week she has been complaining of increasing shortness of breath despite her normal continuous oxygen requirement for COPD. She uses 3 l of o2 at the halfway. The chest x-ray showed no acute abnormality She was started on prednisone but did not improve for which she was given IV Solu-Medrol, patient was continued on Rocephin as she had a positive UA for infection, urine culture did not grow any bacteria The patient is much better today and is stable to be discharged - Time Spent with Patient Total time spent providing and/or coordinating discharge services: Greater than 30 minutes (40 min) - Constitutional Vitals: Temp Pulse Resp BP Pulse Ox 98.3 F 79 16 134/72 95 02/28/17 06:46 02/28/17 06:46 02/28/17 06:46 02/28/17 06:46 02/28/17 06:46 General appearance: Present: A&O X 3, no acute distress - Head Head exam: Present: atraumatic, normocephalic - Eye Eye exam: Present: PERRL, conjuntiva pink, sclera anicteric Pupils: Present: PERRL - Neck Neck exam general surgery: Present: supple, trachea midline. Absent: lymphadenopathy - Respiratory Respiratory exam: Present: CTAB, wheezes (Minimal fine wheezing). Absent: accessory muscle use, rales, rhonchi - Cardiovascular Cardiovascular exam: Present: RRR, +S1, +S2. Absent: diastolic murmur, gallop, rubs, systolic murmur - GI/Abdominal GI/Abdominal exam: Present: normal bowel sounds, soft, no peritoneal signs. Absent: distended, tenderness - Extremities Exam Extremities exam: Present: warm, radial pulses palpable and symetrical. Absent : calf tenderness, cyanotic, pedal edema - Neurological Exam Neurological exam: Present: CN II-XII intact, oriented X3, no focal deficits. Absent: pronater drift, facial droop, speech deficit - Skin Skin exam: Present: dry, intact - VTE Documentation of Mechanical Device: Intermittent pneumatic compression device
--- NOTE | 2017-02-28 08:34 | Physician Discharge Referral ---
[facility] Referral Info Provider in Charge after Transfer: PCP Institutional Level of Care: Skilled - Diagnosis (1) Acute exacerbation of chronic obstructive airways disease Status: Acute (2) Altered mental status Status: Acute (3) Urinary tract infection Status: Acute (4) H/O fracture of hip Status: Acute - Transfer Medications Prescriptions: ALPRAZolam [Xanax 1 MG Tablet] 1 mg PO 0700,1999 #20 tablet Amoxicillin/Clavulanate [Augmentin] 875 mg PO Q12H #8 tablet HYDROcodone/Acet 5/325 mg [[place] 5-325 mg] 1 tab PO 0500,1100,1700,2300 PRN #20 tablet PRN Reason: pain predniSONE [PredniSONE] 10 mg PO DAILY 18 Days Home Medications: Albuterol Neb [Proventil Neb] 2.5 mg IH 0000,0600,1200,1800 02/25/17 [History] Arformoterol Tartrate [Brovana] 15 mcg IH 0700,199902/25/17 [History] Ascorbate Calcium [Vitamin C] 500 mg PO DAILY 02/25/17 [History] Atorvastatin [Lipitor] 40 mg PO HS 02/25/17 [History] B2/Vits A,C,E/Lut/Zeaxanth/Min [Icaps Tablet] 1 each PO BID 02/25/17 [History] Budesonide Neb [Pulmicort Neb] 0.25 mg IH 0700,199902/25/17 [History] Buspirone HCl [Buspar] 5 mg PO QAM 02/25/17 [History] Calcium Carbonate/Vitamin D3 [Calcium 600-Vit D3 200 Tablet] 1 each PO DAILY 01/07 [History] Cholecalciferol (D-3) [Vitamin D] 1,000 unit PO DAILY 02/25/17 [History] Clopidogrel [Plavix] 75 mg PO HS 02/25/17 [History] Docusate [Colace] 100 mg PO DAILY PRN 02/25/17 [History] Ibuprofen [Motrin] 200 mg PO Q6H PRN 02/25/17 [History] Levothyroxine [Synthroid] 50 mcg PO 0630 02/25/17 [History] Losartan Potassium [Cozaar] 50 mg PO QPM 02/25/17 [History] Magnesium Hydroxide [Milk of Magnesia] 2,400 mg PO DAILY PRN 02/25/17 [History] Meclizine HCl [Verticalm] 25 mg PO Q8H PRN 02/25/17 [History] Megestrol Acetate 800 mg PO DAILY 02/25/17 [History] Multivit-Min/FA/Lycopen/Lutein [Centrum Silver Tablet] 1 each PO DAILY 02/25/17 [History] [place]-3/Dha/Epa/Fish Oil [Fish Oil 1,000 mg Softgel] 1,000 mg PO DAILY 02/25/17 [History] Ondansetron HCl [Zofran] 4 mg PO DAILY PRN 02/25/17 [History] Sertraline [Zoloft] 150 mg PO DAILY 02/25/17 [History] metFORMIN [Glucophage] 500 mg PO BIDWM 02/25/17 [History] ALPRAZolam [Xanax 1 MG Tablet] 1 mg PO 0700,1999 #20 tablet 02/28/17 [Rx] Amoxicillin/Clavulanate [Augmentin] 875 mg PO Q12H #8 tablet 02/28/17 [Rx] HYDROcodone/Acet 5/325 mg [[place] 5-325 mg] 1 tab PO 0500,1100,1700,2300 PRN #20 tablet 02/28/17 [Rx] predniSONE [PredniSONE] 10 mg PO DAILY 18 Days 02/28/17 [Rx] Allergies/Adverse Reactions: Allergies levofloxacin [From Levaquin] Allergy (Verified 07/29/15 19:35) Rash - Respiratory Orders Oxygen / L per min (2 L continuously) Smoking Cessation: Smoking cessation has been advised. For more information, call the [place] Tobacco Quit Line at 2-516-DZIJ-NOW. - Advance Directives Code Status: Full Code - Rehabiliation Orders Rehab Orders: Evaluation for Physical Therapy - Treatments List/Other: Follow-up with primary care physician within the next 7 days. Complete 4 more days of Augmentin, taper prednisone. Continue oxygen therapy - Diet Orders No Added Salt (TAMIKA) CERTIFICATION: I certify that the transfer of the above named patient to an Extended Care Facility is necessary for the continuing treatment of the diagnosis listed. The above information is true and accurate reflection of patient's current condition. Confidential - Redisclosure prohibited without a patient's written consent.
[2017-02-28] MEDS: Multivit/Ca/Min/Fe/FA 1 TAB TABLET PO SCH (09:19)
[2017-02-28] MEDS: Megestrol Acetate 400 MG/10 ML UDC PO SCH (09:19)
[2017-02-28] MEDS: Cholecalciferol (D-3) 1,000 UNIT TABLET PO SCH (09:19)
[2017-02-28] MEDS: Ascorbic Acid 500 MG TABLET PO SCH (09:20)
[2017-02-28] MEDS: Insulin LISPRO 300 UNITS/3 ML VIAL SQ SCH (09:20)
== END 2017-02-28 11:23 | DRG 190 ==
LOC: EMEROO 18:36 → 3ANU 18:36
PROVIDERS: ADMIT Internal Medicine Endocrinology, Diabetes & Metabolism; ATTEND Internal Medicine